=== PATIENT | male | born 1980 | race African-American/Black ===

== ENCOUNTER 2020-08-30 13:22 | Emergency (ER) | payer OTHER, SELFPAY ==
--- NOTE | ~2020-08-30 | XR_ITS ---
EXAMINATION: XR ANKLE, RIGHT XR FOOT, RIGHT CLINICAL INFORMATION: Fall, trauma, pain COMPARISON: None TECHNIQUE: 2 views right ankle, 2 views right foot, and a lateral view of the combined ankle and foot are obtained for a total of 5 views. FINDINGS: There is no visible fracture or dislocation or destructive process. No visible ankle capsular effusion. The malleoli are intact and the ankle mortise is symmetric. Talar dome shows no osteochondral lesion. No joint narrowing or erosive change. The subtalar joint is unremarkable. The retrocalcaneal recess is preserved. There is borderline posterior and plantar calcaneal spurs. The midfoot and forefoot show no fracture or dislocation. There is hallux valgus first MTP. XR/XR foot RT 2V IMPRESSION: No fracture or dislocation.
--- NOTE | ~2020-08-30 | XR_ITS ---
EXAMINATION: XR ANKLE, RIGHT XR FOOT, RIGHT CLINICAL INFORMATION: Fall, trauma, pain COMPARISON: None TECHNIQUE: 2 views right ankle, 2 views right foot, and a lateral view of the combined ankle and foot are obtained for a total of 5 views. FINDINGS: There is no visible fracture or dislocation or destructive process. No visible ankle capsular effusion. The malleoli are intact and the ankle mortise is symmetric. Talar dome shows no osteochondral lesion. No joint narrowing or erosive change. The subtalar joint is unremarkable. The retrocalcaneal recess is preserved. There is borderline posterior and plantar calcaneal spurs. The midfoot and forefoot show no fracture or dislocation. There is hallux valgus first MTP. XR/XR ankle RT min 3V IMPRESSION: No fracture or dislocation.
--- NOTE | ~2020-08-30 | XR_ITS ---
EXAMINATION: XR KNEE, RIGHT CLINICAL INFORMATION: Fall, trauma, pain COMPARISON: Radiographs right knee 07/10/2018 TECHNIQUE: Four views of the right knee. FINDINGS: There is no fracture or dislocation. Trace suprapatellar effusion is suspected. Hoffa's fat pad appears normal. There is no joint narrowing or erosive change or chondrocalcinosis. Bony mineralization is normal. XR/XR knee RT 4V IMPRESSION: No fracture or dislocation. Suspect trace suprapatellar effusion.
--- NOTE | ~2020-08-30 | XR_ITS ---
EXAMINATION: XR LUMBOSACRAL SPINE CLINICAL INFORMATION: Fall, trauma, pain COMPARISON: Radiographs lumbar spine 07/10/2018 TECHNIQUE: Three views of the lumbosacral spine. FINDINGS: There is incidental spina bifida occulta at lumbosacral junction similar to prior exam. The vertebral bodies are normal in height and there is no lumbar vertebral compression, spondylolisthesis, disc narrowing, or destructive process. No erosive change. The SI joints and visualized sacrum are unremarkable. XR/XR lumbar spine 2-3V IMPRESSION: No acute bony abnormality.
[2020-08-30 13:40] VITALS: BP 128/94; PULSE 66; RESP 18; TEMP 36.3; O2SAT 97; BMI 33.6
[2020-08-30] MEDS: Ibuprofen 800 MG TABLET PO (14:12)
[2020-08-30 15:05] VITALS: RESP 18
--- NOTE | 2020-08-30 15:46 | ED_ITS ---
HPI - Back Pain/Injury General Chief Complaint: Back Pain/Injury Stated Complaint: LOW BACK R KNEE AND ANKLE INJ AT WORK Time Seen by Provider: 08/30/20 13:59 Source: patient Mode of arrival: ambulatory Limitations: no limitations History of Present Illness HPI Narrative: Patient presents to ED for back pain, knee pain, foot pain and ankle pain on the right side at the person down stairs. Patient denies hitting head or loss of consciousness. Patient denies any neck pain, chest pain, abdominal pain, rectal bleeding, vomiting blood, headache, or dizziness. MD elicited complaint: back pain Related Data Previous Rx's Medication Instructions Recorded naproxen 500 mg PO BID PRN #20 tab 08/30/20 Allergies Allergy/AdvReac Type Severity Reaction Status Date / Time No Known Allergies Allergy Verified 08/30/20 13:40 Review of Systems Review of Systems: Yes all other systems are reviewed and are negative Constitutional: Constitutional: Reports as per HPI and Reports no additional constitutional complaints Eyes: Eyes: Reports as per HPI and Reports no additional eye complaints ENT: Reports system reviewed and no additional complaints, except as documented and Reports as per HPI Cardiovascular: Cardiovascular: Reports as per HPI and Reports no additional cardiovascular complaints Respiratory: Respiratory: Reports as per HPI and Reports no additional respiratory complaints Gastrointestinal: Gastrointestinal: Reports as per HPI and Reports no additional gastrointestinal complaints Genitourinary: Genitourinary: Reports no additional male genitourinary complaints and Reports as per HPI Musculoskeletal: Musculoskeletal: Reports no additional musculoskeletal complaints, Reports as per HPI, Reports back pain and Reports arthralgias (Right knee pain. Right ankle pain.) Neurologic: Reports system reviewed and no additional complaints, except as documented and Reports as per HPI Psychiatric: Psychiatric: Reports no additional psychiatric complaints and Reports as per HPI [facility] Past Medical History Medical History (Updated 08/30/20 @ 15:51 by DAQUAN Martinez) Patient denies medical problems Social History Social History Advance Directives: No Advance Directives Information Provided: No Physical Exam Vital Signs: Vital Signs: Last Vital Signs Temp 97.3 F 08/30/20 13:40 Pulse 66 08/30/20 13:40 Resp 18 08/30/20 15:05 BP 128/94 H 08/30/20 13:40 Pulse Ox 97 08/30/20 13:40 Body Mass Index 33.6 Const: General: cooperative, healthy appearing, comfortable, no acute distress, well developed, alert and awake Orientation/consciousness: patient oriented x3 HENMT: Head: Yes normal to inspection, Yes No palpable skull fracture present, Yes normocephalic, Yes atraumatic, Yes abrasion, No Jerez's sign, No contusion, No cranial bruits, No hematoma, No laceration, No occipital foramen tenderness, No palpable skull fracture, No raccoon eyes, No scalp lesion, No scalp tenderness, No Temporal artery tenderness present and No periorbital ecchymosis Eyes: General: appearance normal, both eyes and all related structures Neck: Neck: Yes normal visual inspection, Yes full ROM, Yes no lymphadenopathy, Yes no meningeal signs, Yes trachea midline, Yes supple and No tender Chest: Chest palpation & inspection: normal inspection of the chest and normal palpation of entire chest wall Resp: Effort & Inspection: normal respiratory effort and able to speak in complete sentences Auscultation: clear to auscultation bilaterally Cardio: Jugular venous distension: no JVD Heart sounds: S1 normal heart sound present and S2 normal heart sound present GI: Inspection: Yes normal to inspection and No abdominal wall ecchymosis Palpation (GI): Soft to palpation, not firm, nontender, no guarding and not rigid : General: Yes CVA tenderness and Yes no CVA tenderness Back/Spine/Pelvis: Back: no CVA tenderness, CVA tenderness and back tenderness (lumbar spine) Skin: General skin exam: no rashes or lesions noted and elasticity normal Neuro: General: patient oriented x3, no meningeal signs and CN's II-XI intact bilaterally Cranial nerves: Yes CN's II-XII intact bilaterally Extrem: Other: Right lower extremity; positive for knee and ankle tenderness. Negative for any deformities, abrasions, ecchymosis. Vascular/motor/neuro exam of extremity intact. All extremities negative for signs of trauma and normal. All other extremities motor/neuro/vascular exam is intact General: Yes normal to inspection and Yes full ROM Psych: Appearance: grossly normal, well kempt and not disheveled Course Course Course Narrative: Patient will be sent for imaging to rule out any fractures. No indication for head CT or C-spine. Patient denies hitting head or neck. Patient denies any loss of consciousness. Patient is not on any blood thinners. Reevaluation(s) Reevaluation #1: Patient not in distress. Motrin ordered. Patient sent for images. Reevaluation #2: Images negative for any fractures. MDM - Back Pain/Injury MDM Narrative Medical decision making narrative: Contusion Discharge Plan Discharge Clinical Impression: Fall, Contusion Patient Disposition: Home, Self-Care Instructions: Contusion in Adults (ED) Additional Instructions: Return to the ED immediately for any headache, dizziness, nausea, vomiting, neck pain, chest pain, shortness of breath, rectal bleeding, vomiting blood, abdominal pain or any other concerning symptoms. Please follow-up with PCP Prescriptions: New naproxen 500 mg tablet 500 mg PO BID PRN (Reason: pain) Qty: 20 RF: 0 Stand Alone Forms: Work/School Release Interventions: ED Discharge Assessment Last Done: 08/30/20 15:57 Discharge Date/Time: 08/30/20 15:57 Print Language: Sami
== END 2020-08-30 15:57 | disposition home or self-care (01) ==
PROVIDERS: Emergency Provider Emergency Medicine
DX: S80.11XA Contusion of right lower leg, initial encounter (principal); M79.604 Pain in right leg; M54.5 Low back pain; M79.671 Pain in right foot; W10.9XXA Fall (on) (from) unspecified stairs and steps, initial encounter; Y93.9 Activity, unspecified; Y92.9 Unspecified place or not applicable; Y99.0 Civilian activity done for income or pay; Z79.899 Other long term (current) drug therapy
CPT/HCPCS: 72100; 73564; 73610; 73620; 99284

== ENCOUNTER 2023-01-11 12:27 | Outpatient (AMB) | payer OTHER, SELFPAY ==
--- NOTE | 2023-01-11 13:37 | AM.OFFWIN_ITS ---
Intake Vital Signs 01/11/23 13:42 Height 6 ft 2 in Weight 263 lb BMI 33.8 BP 140/80 H Blood Pressure Location Rt brachial Position Sitting Pulse 84 Pulse Source Pulse Oximeter Pulse Oximetry (%) 97 Oxygen Delivery Method Room Air Intake Visit Reasons: EP, Left knee pain Intake Note: Patient here for left knee pain since sunday, he believes he hit it on the desk at work. Patient Tobacco Use Status: Former Tobacco user Allergies No Known Allergies Allergy (Verified 01/11/23 13:39) Do you need a note to return to daycare/school/sports/work: Yes HPI HPI Comments History of Present Illness Details The patient presents to the emergency Urgent Care for evaluation of left knee pain. He states that 2 days ago is at work and bumped his knee on corner of a table did not think much of it. Over the next 2 days the knee was aching a little bit and then this morning he woke up with the knee swollen red warm and exquisitely tender. Patient does have a history of gout but has never had gout in the knee before. He has been using naproxen with some relief of pain. [facility] Medical History (Updated 08/31/20 @ 00:01 by Background Sandra) Patient denies medical problems Social History Patient Tobacco Use Status: Former Tobacco user Physical Exam Vital Signs: Last Vital Signs Pulse 84 01/11/23 13:42 BP 140/80 H 01/11/23 13:42 Pulse Ox 97 01/11/23 13:42 Oxygen Delivery Method Room Air 01/11/23 13:42 BMI result Body Mass Index 33.8 Const General: healthy appearing and no acute distress Orientation/consciousness: patient oriented x3 Eyes Corneas: corneas normal Pupils: Equal, round and reactive pupils present Chest Chest palpation & inspection: no tenderness Resp Effort & Inspection: normal respiratory effort and able to speak in complete sentences GI Palpation (GI): nontender Neuro General: patient oriented x3 Cranial nerves: Yes Equal, round and reactive pupils present Extrem Other: Left knee is swollen, red and warm to the touch. Tender to palpation and with decreased range of motion secondary to pain Psych Appearance: grossly normal Attitude: cooperative Assessment & Plan Assessment & Plan (1) Gout: Code(s): M10.9 - Gout, unspecified Plan Symptoms consistent with gouty arthritis of left knee. Will recommend the patient discontinue Naprosyn for now and started indomethacin may alternate with Tylenol as well. Patient comfortable this plan. Work note given. Medications: New indomethacin administer with food or milk 50 mg (2 x 25 mg) PO BID 20 caps 0RF Coding Level of Care Code Est Pt Level 3 (43465) Diagnoses Gout M10.9
[2023-01-11 13:42] VITALS: BP 140/80; PULSE 84; O2SAT 97; BMI 33.8
== END 2023-01-11 14:27 | disposition home or self-care (01) ==
PROVIDERS: Visit Provider Emergency Medicine
DX: M10.9 Gout, unspecified (principal)
CPT/HCPCS: 99213

== ENCOUNTER 2023-12-16 10:38 | Emergency (ER) | payer SELFPAY ==
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
--- NOTE | ~2023-12-16 | XR_ITS ---
EXAMINATION: XR RIBS, LEFT CLINICAL INFORMATION: Chest and left RIBS. COMPARISON: Left rib pain TECHNIQUE: 3 views of the left ribs were obtained. FINDINGS: Chest: The lungs are in moderate inspiration. There is a wedge-shaped opacity left lower lobe superior segment suggestive of consolidation. There is patchy atelectatic changes in the right lung base. Heart size and prevascular is normal. Multiple views of left ribs reveal no visible fracture or bony abnormality. XR/XR ribs LT min 3V w CXR1V IMPRESSION: 1. Left lower lobe superior segment consolidation. 2. Patchy atelectatic changes right lung base. 3. No visible left rib fracture or bony abnormality. Electronically signed by: Henry Ring MD 12/16/2023 01:53 PM EDT
[2023-12-16 10:45] VITALS: BP 155/90; PULSE 80; RESP 16; TEMP 37; O2SAT 96; BMI 33.6
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
[2023-12-16] MEDS: Ketorolac Tromethamine 30 MG/ML VIAL IM (11:37)
[2023-12-16 11:55] LABS: Influenza A PCR NEGATIVE (Negative); Influenza B PCR NEGATIVE (Negative); Resp Syncy Virus RNA Qual PCR NEGATIVE (Negative); SARS COV2 PCR INHOUSE NEGATIVE (Negative)
[2023-12-16 14:57] LABS: Basophils Absolute Auto 0.1 X10*3/uL (0.0-0.2); Basophils Percent Auto 0.5 % (0-2); Eosinophils Absolute Auto 0.2 X10*3/uL (0.0-0.4); Eosinophils Percent Auto 1.5 % (0-4); Hematocrit 42.1 % (42.0-52.0); Imm Gran Abs Auto 0.03 X10*3/uL (0.00-0.03); Imm Gran Pct Auto 0.2 % (0.0-0.4); Lymphocytes Absolute Auto 2.3 X10*3/uL (1.2-4.9); Lymphocytes Percent Auto 18.6 % (20-40); MANUAL DIFF FLAG SCAN; Mean Corpuscular HGB Conc 33.3 g/dl (31.0-36.0); Mean Corpuscular Hemoglobin 31.5 pg (27.0-33.0); Mean Corpuscular Volume 94.6 fL (80.0-98.0); Mean Platelet Volume 9.1 fL (9.4-12.4); Monocytes Absolute Auto 1.6 X10*3/uL (0.1-1.2); Monocytes Percent Auto 12.9 % (2-11); Neutrophils Percent Auto 66.3 % (45-73); Platelet Count 312 X10*3/uL (160-400); Red Blood Count 4.45 X10*6/uL (4.60-5.80); Red Cell Distribution Width 13.7 % (11.0-16.0); SCAN SMEAR FLAG 1; White Blood Count 12.1 X10*3/uL (4.8-10.8)
[2023-12-16 15:07] LABS: Alanine Aminotransferase 14 U/L (0-40); Albumin Level 3.9 g/dL (3.5-5.0); Alkaline Phosphatase 88 U/L (39-117); Anion Gap 13 (12-20); Aspartate Amino Transferase 20 U/L (5-37); Bilirubin Total 0.9 mg/dL (0.0-1.0); Blood Urea Nitrogen 7 mg/dL (9-16); Calcium 9.3 mg/dL (8.4-10.2); Carbon Dioxide 25 mmol/L (22-29); Chloride 106 mmol/L (96-108); Creatinine Clr Calc Pharmacy 145.5; Estimated Glomerular Filt Rate > 60; Glucose Random 93 mg/dL (60-115); Potassium 3.3 mmol/L (3.3-5.1); Sodium 141 mmol/L (135-145); Total Protein 7.3 g/dL (6.5-8.0)
[2023-12-16 15:16] LABS: SLIDE REVIEW VERIFIED
[2023-12-16 15:18] VITALS: BP 181/90; PULSE 80; RESP 16; TEMP 37.1; O2SAT 96
[2023-12-16] MEDS: iohexoL 350 MG/ML 100 ML INFUS..BTL 65 ML IV (16:31)
[2023-12-16 17:44] VITALS: BP 181/90; PULSE 80; RESP 16; TEMP 37.1; O2SAT 96
== END 2023-12-16 17:45 | disposition home or self-care (01) ==
PROVIDERS: Physician Assistant Medical; Emergency Provider Emergency Medicine; PCP Internal Medicine
DX: S29.9XXA Unspecified injury of thorax, initial encounter (principal); J18.9 Pneumonia, unspecified organism; R07.81 Pleurodynia; Y04.2XXA Assault by strike against or bumped into by another person, initial encounter; Y93.89 Activity, other specified; Y92.89 Other specified places as the place of occurrence of the external cause; Y99.0 Civilian activity done for income or pay; Z03.818 Encounter for observation for suspected exposure to other biological agents ruled out; Z79.899 Other long term (current) drug therapy
CPT/HCPCS: 0241U; 36415; 71101; 71260; 80053; 85025; 96372; 99284; J1885; Q9967